=== PATIENT | male | born 1985 | race Caucasian/White ===

== ENCOUNTER 2024-08-13 16:16 | Outpatient (BNV) | payer OTHER, SELFPAY | END 2024-08-18 11:44 | PROVIDERS: Admitting Provider Student in an Organized Health Care Education/Training Program; Emergency Provider Internal Medicine; Visit Provider Internal Medicine | DX: Z13.6 Encounter for screening for cardiovascular disorders (principal) | CPT/HCPCS: 93010 ==

== ENCOUNTER 2024-08-13 16:16 | Outpatient (BNV) | payer OTHER, SELFPAY | END 2024-08-18 10:30 | PROVIDERS: Admitting Provider Student in an Organized Health Care Education/Training Program; Emergency Provider Internal Medicine; Visit Provider Radiology Diagnostic Radiology | DX: N20.0 Calculus of kidney (principal); K76.0 Fatty (change of) liver, not elsewhere classified; R16.2 Hepatomegaly with splenomegaly, not elsewhere classified | CPT/HCPCS: 76700 ==

== ENCOUNTER → 2024-08-13 16:16 | Outpatient (BNV) | payer OTHER, SELFPAY | PROVIDERS: Admitting Provider Student in an Organized Health Care Education/Training Program; Emergency Provider Internal Medicine; Visit Provider Registered Nurse | DX: F32.2 Major depressive disorder, single episode, severe without psychotic features (principal) | CPT/HCPCS: 99232 ==

== ENCOUNTER → 2024-08-13 16:16 | Outpatient (BNV) | payer OTHER, SELFPAY | PROVIDERS: Admitting Provider Student in an Organized Health Care Education/Training Program; Emergency Provider Internal Medicine; Visit Provider Student in an Organized Health Care Education/Training Program | DX: R74.01 Elevation of levels of liver transaminase levels (principal); E83.42 Hypomagnesemia; K76.82 Hepatic encephalopathy | CPT/HCPCS: 99231; 99232; 99233 ==

== ENCOUNTER 2024-08-18 14:00 | Inpatient (IN) | payer OTHER, SELFPAY ==
--- NOTE | ~2024-08-18 | XR_ITS ---
CLINICAL HISTORY: Fever, cough Chest Radiographs, 2 views Comparison: None Findings: No cardiomegaly. Normal mediastinal contours. No pneumothorax. No focal opacity. Peribronchial thickening. No pleural effusion. Normal upper abdomen. No fracture. Impression: Peribronchial thickening may indicate bronchitis. This document has been electronically signed by: Radha Gtz MD on 08/20/2024 18:50:26
[2024-08-18 15:28] VITALS: BP 132/78; PULSE 92; RESP 17; TEMP 37.1; O2SAT 96
[2024-08-18 15:30] VITALS: BMI 22.2
[2024-08-18] MEDS: Omeprazole 40 MG CAPSULE.DR PO (16:02)
[2024-08-18] MEDS: Buprenorphine/Naloxone 2/0.5mg TAB.SUBL 3 TAB SUBLINGUAL ×2 (16:02→20:53)
--- NOTE | 2024-08-18 17:07 | PC.ADMIT ---
Patient is a direct transfer to our unit from [place] [address] at 1420 on a CV for treatment of Unspecified Depressive Disorder. Patient was originally sent to our ED from [facility] after a report of altered mental status while in the facility. Patient is A&O to person, place and time but impaired insight into situation, states I'm not sure where I was before this but they sent me to the hospital because I was totally gone. I felt like I was hypnotized . Per crisis eval, pt is currently homeless, appearance is unkempt and affect is flat upon interactions with poor eye contact. Thought blocking noted occasionally during assessment, and patients ability to focus is impaired (noted to be nodding off towards the end of the admission assessment). Patient reports a substance use hx of both alcohol and opiates but states I've been in recovery since around last March , pt's tox screen positive for Buprenorphine. He denies active SI/HI/AVH but states thoughts of wanting to hurt himself is on and off . Patient has medical hx of a TBI, seizures and Chronic Liver disease. Reports sleep is okay, but melatonin helps and states his appetite is good. Patient denies any physical complaints, though intermittent use of his accessory muscles upon inhaling has been noted Yeah I feel like I'm snoring sometimes when I take a breath but it doesn't bother me at all . Patient states his goal upon discharge is to get into a senior care house so I can get back to working and driving again . He has been placed on 15 minute checks for safety.
--- OUTSIDE RECORDS SUMMARY | 2024-08-18 17:54 | XMS_ITS | Clinical Summary ---
Author Organization [facility] Address [address] [place] [address] Phone Care Team Providers Care Store Promoter Name Role Phone Automatically, Signed Unavailable [phone] Conditions or Problems No information available. Medications No information available. Medications Administered No information available. Allergies, Adverse Reactions, Alerts No information available. Results Date Name Value Unit Range Flag Description Lab Report: URINE DRUG OF AB USE SCREEN OPIATE URINE NONE DETECTED op iate screen, urine BENZODIAZ UR NONE DETECTED Be nzodiazepines [Presence] in Urine BARBITURA UR NONE DETECTED ba rbiturates screen, urine AMPHETAMI UR NONE DETECTED Am phetamines [Presence] in Urine Plan of Care No information available. Procedures No information available. Vital Signs No information available. Immunizations No information available. Advance Directives No information available.
[2024-08-18 20:00] VITALS: BP 122/80; PULSE 80; RESP 16; TEMP 37.3; O2SAT 94
[2024-08-18] MEDS: clonazePAM 1 MG TABLET PO (20:53)
[2024-08-18] MEDS: hydrOXYzine HCL 25 MG TABLET PO (20:53)
[2024-08-18] MEDS: Nicotine Polacrilex 2 MG GUM 4 MG BUCCAL (20:53)
[2024-08-18] MEDS: levETIRAcetam 1,000 MG TABLET 1000 MG PO (20:54)
[2024-08-19] MEDS: clonazePAM 1 MG TABLET PO ×2 (03:51→12:23)
[2024-08-19] MEDS: hydrOXYzine HCL 25 MG TABLET PO ×3 (03:51→20:41)
[2024-08-19] MEDS: Levothyroxine Sodium 50 MCG TABLET PO (06:05)
[2024-08-19] MEDS: Omeprazole 40 MG CAPSULE.DR PO ×2 (06:33→16:54)
[2024-08-19 07:25] VITALS: BP 118/75; PULSE 93; RESP 14; TEMP 36.7; O2SAT 95
[2024-08-19] MEDS: Buprenorphine/Naloxone 2/0.5mg TAB.SUBL 3 TAB SUBLINGUAL ×3 (08:35→20:41)
[2024-08-19] MEDS: Escitalopram Oxalate 20 MG TABLET PO (08:35)
[2024-08-19] MEDS: levETIRAcetam 1,000 MG TABLET 1000 MG PO ×2 (08:35→20:41)
[2024-08-19] MEDS: Thiamine HCL 100 MG TABLET PO (08:35)
[2024-08-19] MEDS: Folic Acid 1 MG TABLET PO (08:35)
[2024-08-19 08:48] LABS: Estimated Average Glucose 91 mg/dL; Hemoglobin A1C 100.9708 umol/L; Hemoglobin A1c % 4.8 % (<6.0); Total Hemoglobin (HGBA1C) 3448.6258 umol/L
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
[2024-08-19 08:53] LABS: Cholesterol 99 mg/dL (<200); HDL Cholesterol 25 mg/dL (>40); LDL Cholesterol Calculated 53 mg/dL (<100); Triglycerides 105 mg/dL (<150)
[2024-08-19 09:09] LABS: Free T4 (Free Thyroxine) 0.89 ng/dL (0.71-1.85); Thyroid Stimulating Hormone 4.65 uIU/mL (0.32-4.0)
[2024-08-19 09:19] LABS: Vitamin B12 1752 pg/mL (200-900)
[2024-08-19 10:09] LABS: Folate 16.3 ng/mL (> or = 4.0)
--- NOTE | 2024-08-19 10:47 | PC.NURSE ---
Patient's labs this morning showed Vitamin B12 elevated (1,752). Provider Simon Flowers notified via tiger text and patient's scheduled Cyanocobalamin (Vitamin B-12) was held.
[2024-08-19 20:00] VITALS: BP 106/60; PULSE 80; RESP 16; TEMP 36.8; O2SAT 96
[2024-08-19] MEDS: QUEtiapine Fumarate 50 MG TABLET PO (20:41)
[2024-08-20] MEDS: LORazepam 1 MG TABLET PO ×3 (01:24→20:29)
[2024-08-20] MEDS: Ondansetron ODT 8 MG TAB.RAPDIS TRANSLINGU (03:40)
[2024-08-20] MEDS: Levothyroxine Sodium 50 MCG TABLET PO (06:00)
[2024-08-20] MEDS: Omeprazole 40 MG CAPSULE.DR PO ×2 (06:28→15:20)
[2024-08-20] MEDS: Acetaminophen 325 MG TABLET 650 MG PO ×2 (07:30→13:36)
[2024-08-20 07:45] VITALS: BP 122/72; PULSE 127; RESP 18; TEMP 38.4; O2SAT 94
--- NOTE | 2024-08-20 08:47 | HO.PSYCHPN ---
Subjective Subjective Date of Service: 08/20/24 Reason For Visit: depression Subjective Notes: Conditional Voluntary Interim History: laying in bed. pt reports he can't really explain how I'm feeling but I'm trying to remain hopeful ; he states feeling upset about his medication changes. denies SI/HI/VH/AH. per nursing, pt vomited x1 last night. Ordered Covid/Flu/RSV panel; awaiting results. Medication Compliance: Yes Side effects from medications: No Attending Groups: No Mental Status Exam Mental Status Exam Patient Appearance: Disheveled Patient Orientation: Person, Place and Situation Level of Consciousness: Awake Patient Behavior: Cooperative and Good Eye Contact Mood Description: Depressed Affect Description: Blunted Ability to Follow Directions: Good Speech Pattern: Soft-Spoken Hallucinations: None Thought Process: Goal Oriented Thought Content: positive for Goal Oriented Judgement: Fair Diagnostics Vital Signs (24Hr): Vital Signs - 24 hr 08/19/24 20:00 08/20/24 07:45 Temperature 98.3 F 101.1 F H Pulse Rate 80 127 H Respiratory Rate 16 18 Blood Pressure 106/60 122/72 Pulse Oximetry 96 94 Oxygen Delivery Method Room Air Room Air BMI result Body Mass Index 22.2 Labs Labs: Laboratory Results - last 48 hr 08/19/24 07:59 Estimat Average Glucose 91 Hemoglobin A1c % 4.8 Triglycerides 105 Cholesterol 99 LDL Cholesterol, Calc 53 HDL Cholesterol 25 L Vitamin B12 1752 H Folate 16.3 TSH 4.65 H Free T4 0.89 Medications Medications Current Medications Acetaminophen (Acetaminophen 325 Mg Tablet) 650 mg PO Q6H PRN PRN Reason: Headache/Pain Mild Scale (1-3) Last Admin: 08/20/24 07:30 Dose: 650 mg Al Hydroxide/Mg Hydroxide (Magnesium Hydrox/Alum Hydrox 30 Ml Oral.Susp) 30 ml PO Q6H PRN PRN Reason: Heartburn/Nausea Buprenorphine/Naloxone (Buprenorphine/Naloxone 2/0.5mg Tab.Subl) 3 tab SUBLINGUAL TID [facility] Last Admin: 08/19/24 20:41 Dose: 3 tab Cyanocobalamin (Cyanocobalamin (Vitamin B-12) 1,000 Mcg Tablet) 1,000 mcg PO DAILY [facility] Last Admin: 08/19/24 10:47 Dose: Not Given Escitalopram Oxalate (Escitalopram Oxalate 20 Mg Tablet) 20 mg PO DAILY [facility] Last Admin: 08/19/24 08:35 Dose: 20 mg Folic Acid (Folic Acid 1 Mg Tablet) 1 mg PO DAILY [facility] Last Admin: 08/19/24 08:35 Dose: 1 mg Hydroxyzine HCl (Hydroxyzine Hcl 25 Mg Tablet) 25 mg PO Q6H PRN PRN Reason: Anxiety Last Admin: 08/19/24 20:41 Dose: 25 mg Lactulose (Lactulose 20 Gm/30 Ml Solution) 20 gm PO QID PRN PRN Reason: ammonia buildup Levetiracetam (Levetiracetam 1,000 Mg Tablet) 1,000 mg PO BID [facility] Last Admin: 08/19/24 20:41 Dose: 1,000 mg Levothyroxine Sodium (Levothyroxine Sodium 50 Mcg Tablet) 50 mcg PO DAILY@0600 [facility] Last Admin: 08/20/24 06:00 Dose: 50 mcg Lorazepam (Lorazepam 1 Mg Tablet) 1 mg PO TID PRN PRN Reason: severe anxiety Last Admin: 08/20/24 01:24 Dose: 1 mg Magnesium Hydroxide (Milk Of Magnesia 30 Ml Oral.Susp) 30 ml PO DAILY PRN PRN Reason: Constipation Nicotine Polacrilex (Nicotine Polacrilex 2 Mg Gum) 4 mg BUCCAL Q2H PRN PRN Reason: Nicotine Cravings Last Admin: 08/18/24 20:53 Dose: 4 mg Omeprazole (Omeprazole 40 Mg Capsule.Dr) 40 mg PO BID@0630,1630 [facility] Last Admin: 08/20/24 06:28 Dose: 40 mg Ondansetron HCl (Ondansetron Odt 8 Mg Tab.Rapdis) 8 mg TRANSLINGU Q12H PRN PRN Reason: Nausea and Vomiting Last Admin: 08/20/24 03:40 Dose: 8 mg Quetiapine Fumarate (Quetiapine Fumarate 50 Mg Tablet) 50 mg PO BEDTIME [facility] Last Admin: 08/19/24 20:41 Dose: 50 mg Senna (Sennosides 8.6 Mg Tablet) 17.2 mg PO DAILY PRN PRN Reason: Constipation Thiamine HCl (Thiamine Hcl 100 Mg Tablet) 100 mg PO DAILY [facility] Last Admin: 08/19/24 08:35 Dose: 100 mg Trazodone HCl (Trazodone Hcl 50 Mg Tablet) 50 mg PO BEDTIME MRX1 PRN PRN Reason: Insomnia Triamcinolone Acetonide (Triamcinolone Acet 0.1 % Cream 15 Gm Tube) 1 appl TOPICAL BID PRN; Protocol PRN Reason: eczema Allergies Allergies Allergy/AdvReac Type Severity Reaction Status Date / Time chlorpromazine Allergy Unknown Verified 08/13/24 12:47 [From Thorazine] fluoxetine [From Prozac] Allergy Unknown Verified 08/13/24 12:47 haloperidol [From Haldol] Allergy Unknown Verified 08/13/24 12:47 Assessment & Plan Assessment & Plan (1) Depression: Status: Acute Code(s): F32.A - Depression, unspecified (2) Acute hepatic encephalopathy: Status: Acute Code(s): K76.82 - Hepatic encephalopathy (3) Opioid use disorder: Status: Acute Code(s): F11.90 - Opioid use, unspecified, uncomplicated (4) Nicotine dependence: Status: Acute Code(s): F17.200 - Nicotine dependence, unspecified, uncomplicated Plan cut suboxone from 8 TID to 6 TID due to altered level of consciousness. decrease klonopin dosing and convert to ativan; ativan 1 TID PRN for now. hepatic insufficiency. asking for seroqeul 50 QHS for sleep. will add tonight. GI recs noted - liver U/S completed. per ID - no Tx to be started in hospital for Hep C, refer to ID on discharge. F/U with gastro. 08/20: continue current tx plan. Patient educated on: medication risk/benefits and therapeutic strategies Reason for continued inpatient stay Substantial Risk for: med/psych decompensation Time Spent With Patient Time: Total time managing care of this patient today _20___ minutes.
[2024-08-20] MEDS: levETIRAcetam 1,000 MG TABLET 1000 MG PO ×2 (09:27→20:29)
[2024-08-20] MEDS: Escitalopram Oxalate 20 MG TABLET PO (09:28)
[2024-08-20] MEDS: Buprenorphine/Naloxone 2/0.5mg TAB.SUBL 3 TAB SUBLINGUAL ×3 (09:29→20:29)
[2024-08-20 09:32] VITALS: TEMP 38.2
[2024-08-20] MEDS: Cyanocobalamin (Vitamin B-12) 1,000 MCG TABLET 1000 MCG PO (10:14)
[2024-08-20] MEDS: Folic Acid 1 MG TABLET PO (10:14)
[2024-08-20] MEDS: Thiamine HCL 100 MG TABLET PO (10:14)
[2024-08-20 10:17] VITALS: PULSE 112; RESP 16; TEMP 38.3
[2024-08-20 15:20] LABS: Hematocrit 36.6 % (42.0-52.0); Hemoglobin 12.3 g/dl (14.0-18.0); Imm Gran Abs Auto 0.01 X10*3/uL (0.00-0.03); Imm Gran Pct Auto 0.3 % (0.0-0.4); MANUAL DIFF FLAG SCAN; Mean Corpuscular HGB Conc 33.6 g/dl (31.0-36.0); Mean Corpuscular Hemoglobin 31.5 pg (27.0-33.0); PLT CLUMP 1; SCAN SMEAR FLAG 1
[2024-08-20 15:22] LABS: Basophils Percent Auto 0.6 % (0-2); Eosinophils Percent Auto 0.3 % (0-4); Lymphocytes Absolute Auto 0.3 X10*3/uL (1.2-4.9); Lymphocytes Percent Auto 10.4 % (20-40); Mean Corpuscular Volume 93.6 fL (80.0-98.0); Mean Platelet Volume 10.5 fL (9.4-12.4); Monocytes Absolute Auto 0.2 X10*3/uL (0.1-1.2); Neutrophils Absolute Auto 2.7 x10*3/uL (2.0-8.3); Neutrophils Percent Auto 81.4 % (45-73); Red Blood Count 3.91 X10*6/uL (4.60-5.80); Red Cell Distribution Width 18.2 % (11.0-16.0)
[2024-08-20 15:24] LABS: Platelet Count 50 X10*3/uL (160-400); White Blood Count 3.3 X10*3/uL (4.8-10.8)
[2024-08-20 15:28] LABS: Ammonia 116 umol/L (13-55)
[2024-08-20 15:31] VITALS: TEMP 38.4
[2024-08-20 15:38] LABS: Alanine Aminotransferase 89 U/L (0-40); Albumin Level 2.5 g/dL (3.5-5.0); Aspartate Amino Transferase 117 U/L (5-37); Bilirubin Direct 0.7 mg/dL (0.0-0.5); Bilirubin Total 1.4 mg/dL (0.0-1.0); Total Protein 6.8 g/dL (6.5-8.0)
[2024-08-20 15:48] LABS: Alkaline Phosphatase 87 U/L (39-117)
[2024-08-20 17:07] LABS: Influenza A PCR NEGATIVE (Negative); Influenza B PCR NEGATIVE (Negative); Resp Syncy Virus RNA Qual PCR NEGATIVE (Negative); SARS COV2 PCR INHOUSE NEGATIVE (Negative)
[2024-08-20] MEDS: Lactulose 20 GM/30 ML SOLUTION PO ×2 (17:20→20:30)
--- NOTE | 2024-08-20 18:04 | PM.EVENT ---
Event Note Date of Service: 08/20/24 Event Note: Pt is a 38-year-old admitted to [facility] with hospitalist consult placed for evaluation of fever. Pt recently admitted to the hospital floor for encephalopathy in the setting of hyperammonemia and then transferred to the psych floor. Pt spiked a fever as high as 101.1 today while on the unit. Complains of sore throat and dry cough the past few days. Also has mild abdominal pain with some nausea vomiting. Denies polyuria or dysuria. No SOB or difficulty breathing. Earlier today tested negative for flu, COVID, RSV. Will check for strep A and get CXR and UA. Time Spent With Patient Time: Total time managing care of this patient today ____ minutes.
[2024-08-20 18:11] LABS: SLIDE REVIEW VERIFIED
[2024-08-20 18:58] LABS: IDNOW Serial# 58CA691E; Strep A Nucleic Acid Negative (Negative)
[2024-08-20 20:00] VITALS: BP 102/60; PULSE 106; RESP 16; TEMP 38.3; O2SAT 97
[2024-08-20] MEDS: QUEtiapine Fumarate 50 MG TABLET PO (20:29)
[2024-08-20 21:11] LABS: Appearance Urine Clear; Color Urine Dark Yellow; Glucose Urine UA Negative (Negative); Leukocyte Esterase Urine Trace (Negative); Nitrite Urine Negative (Negative); Specific Gravity - Urine >= 1.030 (1.005-1.025); UMIC TRIGGER UACC YES; Urine Blood Negative (Negative); Urine Ketones Negative (Negative); Urine Protein Negative (Neg-Trace)
[2024-08-20 21:13] LABS: Bacteria Urine None Seen (None Seen); Hyaline Casts Urine 0-2 /LPF (0-2); RBC Urine 0-2 /HPF (0-2); Squamous Epithelial Cell Urine 0-2 /HPF (0-2); WBC Urine 0-5 /HPF (0-5)
[2024-08-21] MEDS: hydrOXYzine HCL 25 MG TABLET PO ×2 (00:24→06:52)
[2024-08-21] MEDS: traZODone HCL 50 MG TABLET PO ×3 (00:24→20:55)
[2024-08-21 01:33] VITALS: TEMP 36.9
[2024-08-21] MEDS: Levothyroxine Sodium 50 MCG TABLET PO (06:00)
[2024-08-21] MEDS: Omeprazole 40 MG CAPSULE.DR PO ×2 (06:49→15:17)
[2024-08-21] MEDS: LORazepam 1 MG TABLET PO ×2 (06:52→15:17)
[2024-08-21 07:55] VITALS: BP 102/59; PULSE 96; RESP 16; TEMP 37.7; O2SAT 97
[2024-08-21] MEDS: Cyanocobalamin (Vitamin B-12) 1,000 MCG TABLET 1000 MCG PO (09:02)
[2024-08-21] MEDS: levETIRAcetam 1,000 MG TABLET 1000 MG PO ×2 (09:02→20:55)
[2024-08-21] MEDS: Folic Acid 1 MG TABLET PO (09:02)
[2024-08-21] MEDS: Buprenorphine/Naloxone 2/0.5mg TAB.SUBL 3 TAB SUBLINGUAL (09:03)
[2024-08-21] MEDS: Thiamine HCL 100 MG TABLET PO (09:03)
[2024-08-21] MEDS: Escitalopram Oxalate 20 MG TABLET PO (09:03)
[2024-08-21] MEDS: Lactulose 20 GM/30 ML SOLUTION PO ×3 (09:03→20:54)
--- NOTE | 2024-08-21 09:05 | P.PNPSI_ITS ---
Subjective Subjective Date of Service: 08/21/24 Reason For Visit: depression Subjective Notes: Conditional Voluntary Interim History: Showered. Pt reports feeling anxious and depressed ; denies SI/HI/VH/AH. Per nursing, crushed orange pills were found near patient's bed with rolled up paper (please see her note). T/W attempted to speak to patient regarding this, however pt declined to speak with T/W. He was informed Suboxone pills would be switched to films and would have to be monitored by staff after medication administration; Pt acknowledged T/W. Chest x-ray results showed peribronchial thickening may indicate bronchitis; please see hospitalist note. Medication Compliance: Yes Side effects from medications: No Attending Groups: No Mental Status Exam Mental Status Exam Patient Appearance: Disheveled Patient Orientation: Person, Place and Situation Level of Consciousness: Drowsy Patient Behavior: Guarded Mood Description: Depressed Affect Description: Blunted Ability to Follow Directions: Good Speech Pattern: Soft-Spoken Hallucinations: None Delusions: Not Present Thought Process: Intact Thought Content: positive for Intact Judgement: Poor Diagnostics Vital Signs (24Hr): Vital Signs - 24 hr 08/20/24 09:32 08/20/24 10:17 08/20/24 15:31 Temperature 100.7 F H 100.9 F H 101.1 F H Pulse Rate 112 H Respiratory Rate 16 Blood Pressure Pulse Oximetry Oxygen Delivery Method 08/20/24 20:00 08/21/24 01:33 08/21/24 07:55 Temperature 100.9 F H 98.4 F 100 F Pulse Rate 106 H 96 Respiratory Rate 16 16 Blood Pressure 102/60 102/59 L Pulse Oximetry 97 97 Oxygen Delivery Method Room Air Room Air BMI result Body Mass Index 22.2 Labs 08/20/24 15:07 Labs: Laboratory Results - last 48 hr 08/19/24 08/20/24 08/20/24 07:59 14:30 15:07 WBC 3.3 L RBC 3.91 L Hgb 12.3 L Hct 36.6 L MCV 93.6 MCH 31.5 MCHC 33.6 RDW 18.2 H Plt Count 50 L MPV 10.5 Immature Gran % (Auto) 0.3 Neut % (Auto) 81.4 H Lymph % (Auto) 10.4 L Coke % (Auto) 7.0 Eos % (Auto) 0.3 Baso % (Auto) 0.6 Lymph # (Auto) 0.3 L [place] # (Auto) 0.2 Eos # (Auto) 0.0 Baso # (Auto) 0.0 Abs Immat Gran (auto) 0.01 Absolute Neuts (auto) 2.7 Absolute Nucleated RBC 0.000 Nucleated RBC % (auto) 0.0 Smear Tech's Comments VERIFIED Total Bilirubin 1.4 H Direct Bilirubin 0.7 H AST 117 H ALT 89 H Alkaline Phosphatase 87 Ammonia 116 H Total Protein 6.8 Albumin 2.5 L Vitamin B12 1752 H Folate 16.3 TSH 4.65 H Free T4 0.89 Urine Color Urine Appearance Urine pH Ur Specific [place] Urine Protein Urine Glucose (UA) Urine Ketones Urine Blood Urine Nitrite Ur Leukocyte Esterase Urine RBC Urine WBC Ur Squamous Epith Cells Urine Bacteria Hyaline Casts Influenza Type A (PCR) NEGATIVE Influenza Type B (PCR) NEGATIVE RSV RNA Qual (PCR) NEGATIVE SARS-CoV-2 RNA (RT-PCR) NEGATIVE S. pyogenes GrpA JERRY 08/20/24 08/20/24 18:35 20:45 WBC RBC Hgb Hct MCV MCH MCHC RDW Plt Count MPV Immature Gran % (Auto) Neut % (Auto) Lymph % (Auto) [place] % (Auto) Eos % (Auto) Baso % (Auto) Lymph # (Auto) [place] # (Auto) Eos # (Auto) Baso # (Auto) Abs Immat Gran (auto) Absolute Neuts (auto) Absolute Nucleated RBC Nucleated RBC % (auto) Smear Tech's Comments Total Bilirubin Direct Bilirubin AST ALT Alkaline Phosphatase Ammonia Total Protein Albumin Vitamin B12 Folate TSH Free T4 Urine Color Dark Yellow Urine Appearance Clear Urine pH 6.0 Ur Specific [place] >= 1.030 H Urine Protein Negative Urine Glucose (UA) Negative Urine Ketones Negative Urine Blood Negative Urine Nitrite Negative Ur Leukocyte Esterase Trace H Urine RBC 0-2 Urine WBC 0-5 Ur Squamous Epith Cells 0-2 Urine Bacteria None Seen Hyaline Casts 0-2 Influenza Type A (PCR) Influenza Type B (PCR) RSV RNA Qual (PCR) SARS-CoV-2 RNA (RT-PCR) S. pyogenes GrpA JERRY Negative Medications Medications Current Medications Al Hydroxide/Mg Hydroxide (Magnesium Hydrox/Alum Hydrox 30 Ml Oral.Susp) 30 ml PO Q6H PRN PRN Reason: Heartburn/Nausea Buprenorphine/Naloxone (Buprenorphine/Naloxone 2/0.5mg Tab.Subl) 3 tab SUBLINGUAL TID [facility] Last Admin: 08/20/24 20:29 Dose: 3 tab Cyanocobalamin (Cyanocobalamin (Vitamin B-12) 1,000 Mcg Tablet) 1,000 mcg PO DAILY [facility] Last Admin: 08/20/24 10:14 Dose: 1,000 mcg Escitalopram Oxalate (Escitalopram Oxalate 20 Mg Tablet) 20 mg PO DAILY [facility] Last Admin: 08/20/24 09:28 Dose: 20 mg Folic Acid (Folic Acid 1 Mg Tablet) 1 mg PO DAILY [facility] Last Admin: 08/20/24 10:14 Dose: 1 mg Hydroxyzine HCl (Hydroxyzine Hcl 25 Mg Tablet) 25 mg PO Q6H PRN PRN Reason: Anxiety Last Admin: 08/21/24 06:52 Dose: 25 mg Lactulose (Lactulose 20 Gm/30 Ml Solution) 20 gm PO TID [facility] Last Admin: 08/20/24 20:30 Dose: 20 gm Levetiracetam (Levetiracetam 1,000 Mg Tablet) 1,000 mg PO BID [facility] Last Admin: 08/20/24 20:29 Dose: 1,000 mg Levothyroxine Sodium (Levothyroxine Sodium 50 Mcg Tablet) 50 mcg PO DAILY@0600 [facility] Last Admin: 08/21/24 06:00 Dose: 50 mcg Lorazepam (Lorazepam 1 Mg Tablet) 1 mg PO TID PRN PRN Reason: severe anxiety Last Admin: 08/21/24 06:52 Dose: 1 mg Magnesium Hydroxide (Milk Of Magnesia 30 Ml Oral.Susp) 30 ml PO DAILY PRN PRN Reason: Constipation Nicotine Polacrilex (Nicotine Polacrilex 2 Mg Gum) 4 mg BUCCAL Q2H PRN PRN Reason: Nicotine Cravings Last Admin: 08/18/24 20:53 Dose: 4 mg Omeprazole (Omeprazole 40 Mg Capsule.Dr) 40 mg PO BID@0630,1630 [facility] Last Admin: 08/21/24 06:49 Dose: 40 mg Ondansetron HCl (Ondansetron Odt 8 Mg Tab.Rapdis) 8 mg TRANSLINGU Q12H PRN PRN Reason: Nausea and Vomiting Last Admin: 08/20/24 03:40 Dose: 8 mg Quetiapine Fumarate (Quetiapine Fumarate 50 Mg Tablet) 50 mg PO BEDTIME [facility] Last Admin: 08/20/24 20:29 Dose: 50 mg Senna (Sennosides 8.6 Mg Tablet) 17.2 mg PO DAILY PRN PRN Reason: Constipation Thiamine HCl (Thiamine Hcl 100 Mg Tablet) 100 mg PO DAILY [facility] Last Admin: 08/20/24 10:14 Dose: 100 mg Trazodone HCl (Trazodone Hcl 50 Mg Tablet) 50 mg PO BEDTIME MRX1 PRN PRN Reason: Insomnia Last Admin: 08/21/24 01:25 Dose: 50 mg Triamcinolone Acetonide (Triamcinolone Acet 0.1 % Cream 15 Gm Tube) 1 appl TOPICAL BID PRN; Protocol PRN Reason: eczema Allergies Allergies Allergy/AdvReac Type Severity Reaction Status Date / Time chlorpromazine Allergy Unknown Verified 08/13/24 12:47 [From Thorazine] fluoxetine [From Prozac] Allergy Unknown Verified 08/13/24 12:47 haloperidol [From Haldol] Allergy Unknown Verified 08/13/24 12:47 Assessment & Plan Assessment & Plan (1) Depression: Status: Acute Code(s): F32.A - Depression, unspecified (2) Acute hepatic encephalopathy: Status: Acute Code(s): K76.82 - Hepatic encephalopathy (3) Opioid use disorder: Status: Acute Code(s): F11.90 - Opioid use, unspecified, uncomplicated (4) Nicotine dependence: Status: Acute Code(s): F17.200 - Nicotine dependence, unspecified, uncomplicated Plan cut suboxone from 8 TID to 6 TID due to altered level of consciousness. decrease klonopin dosing and convert to ativan; ativan 1 TID PRN for now. hepatic insufficiency. asking for seroqeul 50 QHS for sleep. will add tonight. GI recs noted - liver U/S completed. per ID - no Tx to be started in hospital for Hep C, refer to ID on discharge. F/U with gastro. 08/20: continue current tx plan. 08/21: Per nursing, crushed orange pills were found near patient's bed with rolled up paper (please see her note). T/W attempted to speak to patient regarding this, however pt declined to speak with T/W. He was informed Suboxone pills would be switched to films and would have to be monitored by staff after medication administration; Pt acknowledged T/W. Chest x-ray results showed peribronchial thickening may indicate bronchitis; please see hospitalist note. Patient educated on: medication risk/benefits Reason for continued inpatient stay Substantial Risk for: med/psych decompensation Time Spent With Patient Time: Total time managing care of this patient today _20___ minutes.
[2024-08-21] MEDS: Nicotine Polacrilex 2 MG GUM 4 MG BUCCAL (11:12)
--- NOTE | 2024-08-21 11:58 | PC.NURSE ---
Yesterday and this am Nabil Avelar was encouraged by RN to shower. He was resistant but eventually agreed. While he was in shower RN was changing his linens and found 6 orange pills in various locations including bed side table, floor and an emesis basin. These appear to be suboxone 2mg. In addition a blue round pill (which resembles clonazepam but pt is not prescribed) was found on the floor. On the desk a unit journal with crushed orange dust, two rolled up pieces of paper with orange dust inside were found. The remainder of this area was searched by RN with no further finding. Items were removed from pt room. Provider Destini Vieira NP, Devyn Naik, Nicole Walton Cytology Supervisor and Dr Nugent were informed. Medications were wasted by Marylou King RN and Margoth Loaiza RN. When pt exited the shower RN showed him the items I found and he stated, I think a pill slid. When I attempted to discuss the unlikelihood that that would explain my findings pt walked away. Pt was informed by provider that suboxone would be switched to films and he would be on close obs following med administration.
[2024-08-21 13:00] VITALS: TEMP 37.2
[2024-08-21 14:42] LABS: IDNOW Serial# 08D9AD1C; Strep A Nucleic Acid Negative (Negative)
[2024-08-21] MEDS: Buprenorphine/Naloxone 2/0.5mg FILM 3 FILM SUBLINGUAL ×2 (15:18→20:54)
[2024-08-21 17:51] VITALS: TEMP 37.1
[2024-08-21 20:00] VITALS: BP 112/74; PULSE 107; RESP 16; TEMP 38.1; O2SAT 97
[2024-08-21] MEDS: QUEtiapine Fumarate 50 MG TABLET PO (20:54)
[2024-08-21 21:06] VITALS: PULSE 100
[2024-08-22] MEDS: Levothyroxine Sodium 50 MCG TABLET PO (06:05)
[2024-08-22] MEDS: Omeprazole 40 MG CAPSULE.DR PO ×2 (06:44→16:25)
[2024-08-22 07:25] VITALS: BP 101/51; PULSE 95; RESP 14; TEMP 38.6; O2SAT 93
[2024-08-22 08:57] VITALS: BP 116/65; PULSE 92; O2SAT 95
[2024-08-22] MEDS: levETIRAcetam 1,000 MG TABLET 1000 MG PO ×2 (09:01→21:03)
[2024-08-22] MEDS: Folic Acid 1 MG TABLET PO (09:01)
[2024-08-22] MEDS: Escitalopram Oxalate 20 MG TABLET PO (09:01)
[2024-08-22] MEDS: Thiamine HCL 100 MG TABLET PO (09:01)
[2024-08-22] MEDS: Lactulose 20 GM/30 ML SOLUTION PO ×3 (09:02→21:04)
[2024-08-22] MEDS: Cyanocobalamin (Vitamin B-12) 1,000 MCG TABLET 1000 MCG PO (09:09)
[2024-08-22] MEDS: Buprenorphine/Naloxone 2/0.5mg FILM 3 FILM SUBLINGUAL ×2 (09:15→15:42)
--- NOTE | 2024-08-22 16:01 | HO.PSYCHPN ---
Subjective Subjective Date of Service: 08/22/24 Reason For Visit: depression Interim History: in bed, unclear if asleep or awake. easily rousable. c/o poor sleep overnight, c/o too much suboxone all at once (believes he got 24mg this morning). brushes off concern about pills found at his bedside this weekend, states he had been thinking about snorting them, but he hadn't actually done it. per staff, blunted. staff found 6 suboxone tabs and a klonopin by bedside, as well as rolled paper (presumably for snorting). no seizures. slept 8 hours. Mental Status Exam Mental Status Exam Narrative: disheveled, hospital ok, poorly groomed, long greasy hair. cooperative. general PMR. speech nml amount, decr rate, decr loudness, incr latency, decr prosody. thoughts linear and logical, no paranoia expressed. affect blunted, hypointense, non-labile. mood not assessed. no SI/HI/AVH expressed. Diagnostics Vital Signs (24Hr): Vital Signs - 24 hr 08/21/24 17:51 08/21/24 20:00 08/21/24 21:06 Temperature 98.8 F 100.5 F H Pulse Rate 107 H 100 Respiratory Rate 16 Blood Pressure 112/74 Pulse Oximetry 97 Oxygen Delivery Method Room Air 08/22/24 07:25 08/22/24 08:57 Temperature 101.5 F H Pulse Rate 95 92 Respiratory Rate 14 Blood Pressure 101/51 L 116/65 Pulse Oximetry 93 95 Oxygen Delivery Method Room Air Room Air BMI result Body Mass Index 22.2 Labs 08/20/24 15:07 Labs: Laboratory Results - last 48 hr 08/20/24 08/20/24 08/20/24 14:30 15:07 18:35 Smear Tech's Comments VERIFIED Urine Color Urine Appearance Urine pH Ur Specific [place] Urine Protein Urine Glucose (UA) Urine Ketones Urine Blood Urine Nitrite Ur Leukocyte Esterase Urine RBC Urine WBC Ur Squamous Epith Cells Urine Bacteria Hyaline Casts Influenza Type A (PCR) NEGATIVE Influenza Type B (PCR) NEGATIVE RSV RNA Qual (PCR) NEGATIVE SARS-CoV-2 RNA (RT-PCR) NEGATIVE S. pyogenes GrpA JERRY Negative 08/20/24 08/21/24 20:45 14:00 Smear Tech's Comments Urine Color Dark Yellow Urine Appearance Clear Urine pH 6.0 Ur Specific [place] >= 1.030 H Urine Protein Negative Urine Glucose (UA) Negative Urine Ketones Negative Urine Blood Negative Urine Nitrite Negative Ur Leukocyte Esterase Trace H Urine RBC 0-2 Urine WBC 0-5 Ur Squamous Epith Cells 0-2 Urine Bacteria None Seen Hyaline Casts 0-2 Influenza Type A (PCR) Influenza Type B (PCR) RSV RNA Qual (PCR) SARS-CoV-2 RNA (RT-PCR) S. pyogenes GrpA JERRY Negative Medications Medications Current Medications Al Hydroxide/Mg Hydroxide (Magnesium Hydrox/Alum Hydrox 30 Ml Oral.Susp) 30 ml PO Q6H PRN PRN Reason: Heartburn/Nausea Albuterol Sulfate (Albuterol Sulfate 90 Mcg 8 Gm Inhaler) 2 puff INHALE RQ4H PRN PRN Reason: Shortness of Breath/Wheezing Buprenorphine/Naloxone (Buprenorphine/Naloxone 2/0.5mg Film) 3 film SUBLINGUAL TID [facility] Last Admin: 08/22/24 15:42 Dose: 3 film Cyanocobalamin (Cyanocobalamin (Vitamin B-12) 1,000 Mcg Tablet) 1,000 mcg PO DAILY [facility] Last Admin: 08/22/24 09:09 Dose: 1,000 mcg Escitalopram Oxalate (Escitalopram Oxalate 20 Mg Tablet) 20 mg PO DAILY [facility] Last Admin: 08/22/24 09:01 Dose: 20 mg Folic Acid (Folic Acid 1 Mg Tablet) 1 mg PO DAILY [facility] Last Admin: 08/22/24 09:01 Dose: 1 mg Guaifenesin/Dextromethorphan (Guaifenesin Dm 200/20/10 Ml 10 Ml Syrup) 10 ml PO Q4H PRN PRN Reason: Cough Hydroxyzine HCl (Hydroxyzine Hcl 25 Mg Tablet) 25 mg PO Q6H PRN PRN Reason: Anxiety Last Admin: 08/21/24 06:52 Dose: 25 mg Lactulose (Lactulose 20 Gm/30 Ml Solution) 20 gm PO TID [facility] Last Admin: 08/22/24 15:42 Dose: 20 gm Levetiracetam (Levetiracetam 1,000 Mg Tablet) 1,000 mg PO BID [facility] Last Admin: 08/22/24 09:01 Dose: 1,000 mg Levothyroxine Sodium (Levothyroxine Sodium 50 Mcg Tablet) 50 mcg PO DAILY@0600 [facility] Last Admin: 08/22/24 06:05 Dose: 50 mcg Magnesium Hydroxide (Milk Of Magnesia 30 Ml Oral.Susp) 30 ml PO DAILY PRN PRN Reason: Constipation Nicotine Polacrilex (Nicotine Polacrilex 2 Mg Gum) 4 mg BUCCAL Q2H PRN PRN Reason: Nicotine Cravings Last Admin: 08/21/24 11:12 Dose: 4 mg Omeprazole (Omeprazole 40 Mg Capsule.Dr) 40 mg PO BID@0630,1630 [facility] Last Admin: 08/22/24 06:44 Dose: 40 mg Ondansetron HCl (Ondansetron Odt 8 Mg Tab.Rapdis) 8 mg TRANSLINGU Q12H PRN PRN Reason: Nausea and Vomiting Last Admin: 08/20/24 03:40 Dose: 8 mg Quetiapine Fumarate (Quetiapine Fumarate 50 Mg Tablet) 50 mg PO BEDTIME [facility] Last Admin: 08/21/24 20:54 Dose: 50 mg Senna (Sennosides 8.6 Mg Tablet) 17.2 mg PO DAILY PRN PRN Reason: Constipation Thiamine HCl (Thiamine Hcl 100 Mg Tablet) 100 mg PO DAILY [facility] Last Admin: 08/22/24 09:01 Dose: 100 mg Trazodone HCl (Trazodone Hcl 50 Mg Tablet) 50 mg PO BEDTIME MRX1 PRN PRN Reason: Insomnia Last Admin: 08/21/24 20:55 Dose: 50 mg Triamcinolone Acetonide (Triamcinolone Acet 0.1 % Cream 15 Gm Tube) 1 appl TOPICAL BID PRN; Protocol PRN Reason: eczema Allergies Allergies Allergy/AdvReac Type Severity Reaction Status Date / Time chlorpromazine Allergy Unknown Verified 08/13/24 12:47 [From Thorazine] fluoxetine [From Prozac] Allergy Unknown Verified 08/13/24 12:47 haloperidol [From Haldol] Allergy Unknown Verified 08/13/24 12:47 Assessment & Plan Assessment & Plan (1) Depression: Status: Acute Code(s): F32.A - Depression, unspecified (2) Acute hepatic encephalopathy: Status: Acute Code(s): K76.82 - Hepatic encephalopathy (3) Opioid use disorder: Status: Acute Code(s): F11.90 - Opioid use, unspecified, uncomplicated (4) Nicotine dependence: Status: Acute Code(s): F17.200 - Nicotine dependence, unspecified, uncomplicated Plan cut suboxone from 8 TID to 6 TID due to altered level of consciousness. decrease klonopin dosing and convert to ativan; ativan 1 TID PRN for now. hepatic insufficiency. asking for seroqeul 50 QHS for sleep. will add tonight. GI recs noted - liver U/S completed. per ID - no Tx to be started in hospital for Hep C, refer to ID on discharge. F/U with gastro. 08/20: continue current tx plan. 08/21: Per nursing, crushed orange pills were found near patient's bed with rolled up paper (please see her note). T/W attempted to speak to patient regarding this, however pt declined to speak with T/W. He was informed Suboxone pills would be switched to films and would have to be monitored by staff after medication administration; Pt acknowledged T/W. Chest x-ray results showed peribronchial thickening may indicate bronchitis; please see hospitalist note. 08/22: DC ativan. pt has not been getting much and should not be prescribed this medication in any case. will also pursue continuing to cut down on suboxone. Reason for continued inpatient stay Substantial Risk for: inability to function Time Spent With Patient Time: Total time managing care of this patient today __25__ minutes.
[2024-08-22 20:00] VITALS: BP 104/59; PULSE 83; RESP 16; TEMP 37.4; O2SAT 96
[2024-08-22 21:03] VITALS: TEMP 37.1
[2024-08-22] MEDS: Sennosides 8.6 MG TABLET 17.2 MG PO (21:03)
[2024-08-22] MEDS: QUEtiapine Fumarate 50 MG TABLET PO (21:04)
[2024-08-22] MEDS: Buprenorphine/Naloxone 2/0.5mg FILM 2 FILM SUBLINGUAL (21:04)
[2024-08-23] MEDS: hydrOXYzine HCL 25 MG TABLET PO ×2 (03:25→17:49)
[2024-08-23] MEDS: Levothyroxine Sodium 50 MCG TABLET PO (06:19)
[2024-08-23] MEDS: Omeprazole 40 MG CAPSULE.DR PO ×2 (06:57→16:19)
[2024-08-23 09:15] VITALS: BP 107/59; PULSE 83; RESP 20; TEMP 36.9; O2SAT 96
[2024-08-23] MEDS: Folic Acid 1 MG TABLET PO (09:18)
[2024-08-23] MEDS: levETIRAcetam 1,000 MG TABLET 1000 MG PO ×2 (09:18→21:13)
[2024-08-23] MEDS: Escitalopram Oxalate 20 MG TABLET PO (09:19)
[2024-08-23] MEDS: Lactulose 20 GM/30 ML SOLUTION PO ×3 (09:19→21:13)
[2024-08-23] MEDS: Buprenorphine/Naloxone 2/0.5mg FILM 2 FILM SUBLINGUAL ×3 (09:19→21:12)
[2024-08-23] MEDS: Cyanocobalamin (Vitamin B-12) 1,000 MCG TABLET 1000 MCG PO (09:19)
[2024-08-23] MEDS: Thiamine HCL 100 MG TABLET PO (09:19)
--- NOTE | 2024-08-23 10:43 | HO.PSYCHPN ---
Subjective Subjective Date of Service: 08/23/24 Reason For Visit: depression Subjective Notes: Conditional Voluntary Interim History: Laying in bed. keeping to self. not attending groups. Pt reports feeling upset d/t medication changes but he is trying to stay positive . per nursing, slept 8 hours. denies SI/HI/VH/AH. Encouraged to shower and attend groups. Medication Compliance: Yes Side effects from medications: No Attending Groups: No Mental Status Exam Mental Status Exam Patient Appearance: Disheveled Patient Orientation: Person, Place and Situation Level of Consciousness: Awake Patient Behavior: Guarded and Poor Eye Contact Mood Description: Depressed Affect Description: Blunted Ability to Follow Directions: Good Speech Pattern: Soft-Spoken and Delayed Hallucinations: None Delusions: Not Present Thought Process: Intact Thought Content: positive for Intact Diagnostics Vital Signs (24Hr): Vital Signs - 24 hr 08/22/24 20:00 08/22/24 21:03 08/23/24 09:15 Temperature 99.4 F 98.7 F 98.4 F Pulse Rate 83 83 Respiratory Rate 16 20 Blood Pressure 104/59 L 107/59 L Pulse Oximetry 96 96 Oxygen Delivery Method Room Air Room Air BMI result Body Mass Index 22.2 Labs 08/20/24 15:07 Labs: Laboratory Results - last 48 hr 08/21/24 14:00 S. pyogenes GrpA JERRY Negative Medications Medications Current Medications Al Hydroxide/Mg Hydroxide (Magnesium Hydrox/Alum Hydrox 30 Ml Oral.Susp) 30 ml PO Q6H PRN PRN Reason: Heartburn/Nausea Albuterol Sulfate (Albuterol Sulfate 90 Mcg 8 Gm Inhaler) 2 puff INHALE RQ4H PRN PRN Reason: Shortness of Breath/Wheezing Buprenorphine/Naloxone (Buprenorphine/Naloxone 2/0.5mg Film) 2 film SUBLINGUAL TID [facility] Last Admin: 08/23/24 09:19 Dose: 2 film Cyanocobalamin (Cyanocobalamin (Vitamin B-12) 1,000 Mcg Tablet) 1,000 mcg PO DAILY [facility] Last Admin: 08/23/24 09:19 Dose: 1,000 mcg Escitalopram Oxalate (Escitalopram Oxalate 20 Mg Tablet) 20 mg PO DAILY [facility] Last Admin: 08/23/24 09:19 Dose: 20 mg Folic Acid (Folic Acid 1 Mg Tablet) 1 mg PO DAILY [facility] Last Admin: 08/23/24 09:18 Dose: 1 mg Guaifenesin/Dextromethorphan (Guaifenesin Dm 200/20/10 Ml 10 Ml Syrup) 10 ml PO Q4H PRN PRN Reason: Cough Hydroxyzine HCl (Hydroxyzine Hcl 25 Mg Tablet) 25 mg PO Q6H PRN PRN Reason: Anxiety Last Admin: 08/23/24 03:25 Dose: 25 mg Lactulose (Lactulose 20 Gm/30 Ml Solution) 20 gm PO TID [facility] Last Admin: 08/23/24 09:19 Dose: 20 gm Levetiracetam (Levetiracetam 1,000 Mg Tablet) 1,000 mg PO BID [facility] Last Admin: 08/23/24 09:18 Dose: 1,000 mg Levothyroxine Sodium (Levothyroxine Sodium 50 Mcg Tablet) 50 mcg PO DAILY@0600 [facility] Last Admin: 08/23/24 06:19 Dose: 50 mcg Magnesium Hydroxide (Milk Of Magnesia 30 Ml Oral.Susp) 30 ml PO DAILY PRN PRN Reason: Constipation Nicotine Polacrilex (Nicotine Polacrilex 2 Mg Gum) 4 mg BUCCAL Q2H PRN PRN Reason: Nicotine Cravings Last Admin: 08/21/24 11:12 Dose: 4 mg Omeprazole (Omeprazole 40 Mg Capsule.Dr) 40 mg PO BID@0630,1630 [facility] Last Admin: 08/23/24 06:57 Dose: 40 mg Ondansetron HCl (Ondansetron Odt 8 Mg Tab.Rapdis) 8 mg TRANSLINGU Q12H PRN PRN Reason: Nausea and Vomiting Last Admin: 08/20/24 03:40 Dose: 8 mg Quetiapine Fumarate (Quetiapine Fumarate 50 Mg Tablet) 50 mg PO BEDTIME [facility] Last Admin: 08/22/24 21:04 Dose: 50 mg Senna (Sennosides 8.6 Mg Tablet) 17.2 mg PO DAILY PRN PRN Reason: Constipation Last Admin: 08/22/24 21:03 Dose: 17.2 mg Thiamine HCl (Thiamine Hcl 100 Mg Tablet) 100 mg PO DAILY [facility] Last Admin: 08/23/24 09:19 Dose: 100 mg Trazodone HCl (Trazodone Hcl 50 Mg Tablet) 50 mg PO BEDTIME MRX1 PRN PRN Reason: Insomnia Last Admin: 08/21/24 20:55 Dose: 50 mg Triamcinolone Acetonide (Triamcinolone Acet 0.1 % Cream 15 Gm Tube) 1 appl TOPICAL BID PRN; Protocol PRN Reason: eczema Allergies Allergies Allergy/AdvReac Type Severity Reaction Status Date / Time chlorpromazine Allergy Unknown Verified 08/13/24 12:47 [From Thorazine] fluoxetine [From Prozac] Allergy Unknown Verified 08/13/24 12:47 haloperidol [From Haldol] Allergy Unknown Verified 08/13/24 12:47 Assessment & Plan Assessment & Plan (1) Depression: Status: Acute Code(s): F32.A - Depression, unspecified (2) Acute hepatic encephalopathy: Status: Acute Code(s): K76.82 - Hepatic encephalopathy (3) Opioid use disorder: Status: Acute Code(s): F11.90 - Opioid use, unspecified, uncomplicated (4) Nicotine dependence: Status: Acute Code(s): F17.200 - Nicotine dependence, unspecified, uncomplicated Plan cut suboxone from 8 TID to 6 TID due to altered level of consciousness. decrease klonopin dosing and convert to ativan; ativan 1 TID PRN for now. hepatic insufficiency. asking for seroqeul 50 QHS for sleep. will add tonight. GI recs noted - liver U/S completed. per ID - no Tx to be started in hospital for Hep C, refer to ID on discharge. F/U with gastro. 08/20: continue current tx plan. 08/21: Per nursing, crushed orange pills were found near patient's bed with rolled up paper (please see her note). T/W attempted to speak to patient regarding this, however pt declined to speak with T/W. He was informed Suboxone pills would be switched to films and would have to be monitored by staff after medication administration; Pt acknowledged T/W. Chest x-ray results showed peribronchial thickening may indicate bronchitis; please see hospitalist note. 08/22: DC ativan. pt has not been getting much and should not be prescribed this medication in any case. will also pursue continuing to cut down on suboxone. 08/23: continue tx plan Patient educated on: medication risk/benefits and therapeutic strategies Reason for continued inpatient stay Substantial Risk for: med/psych decompensation Time Spent With Patient Time: Total time managing care of this patient today _20___ minutes.
[2024-08-23 15:00] LABS: Influenza A PCR NEGATIVE (Negative); Influenza B PCR NEGATIVE (Negative); Resp Syncy Virus RNA Qual PCR NEGATIVE (Negative); SARS COV2 PCR INHOUSE NEGATIVE (Negative)
[2024-08-23] MEDS: Sennosides 8.6 MG TABLET 17.2 MG PO (16:21)
[2024-08-23 20:00] VITALS: BP 124/67; PULSE 77; TEMP 36.9; O2SAT 97
[2024-08-23] MEDS: QUEtiapine Fumarate 50 MG TABLET PO (21:13)
[2024-08-24] MEDS: Levothyroxine Sodium 50 MCG TABLET PO (06:26)
[2024-08-24] MEDS: Omeprazole 40 MG CAPSULE.DR PO ×2 (06:26→15:38)
[2024-08-24 07:57] VITALS: BP 102/53; PULSE 75; RESP 14; TEMP 36.9; O2SAT 95
[2024-08-24] MEDS: Buprenorphine/Naloxone 2/0.5mg FILM 2 FILM SUBLINGUAL (08:10)
[2024-08-24] MEDS: levETIRAcetam 1,000 MG TABLET 1000 MG PO ×2 (08:10→20:30)
[2024-08-24] MEDS: Lactulose 20 GM/30 ML SOLUTION PO ×3 (08:10→20:29)
[2024-08-24] MEDS: Escitalopram Oxalate 20 MG TABLET PO (08:10)
[2024-08-24] MEDS: Cyanocobalamin (Vitamin B-12) 1,000 MCG TABLET 1000 MCG PO (08:10)
[2024-08-24] MEDS: Folic Acid 1 MG TABLET PO (08:10)
[2024-08-24] MEDS: Thiamine HCL 100 MG TABLET PO (08:10)
[2024-08-24] MEDS: Magnesium Hydrox/Alum Hydrox 30 ML ORAL.SUSP PO (08:33)
[2024-08-24] MEDS: Nicotine Polacrilex 2 MG GUM 4 MG BUCCAL ×2 (12:27→20:44)
[2024-08-24] MEDS: hydrOXYzine HCL 25 MG TABLET PO ×2 (12:27→20:30)
[2024-08-24] MEDS: Buprenorphine/Naloxone 2/0.5mg FILM 3 FILM SUBLINGUAL ×2 (15:35→20:29)
--- NOTE | 2024-08-24 16:36 | P.PNPSI_ITS ---
Subjective Subjective Date of Service: 08/24/24 Reason For Visit: depression Interim History: in bed, c/o drop in klonopin and gabapentin. c/o general malaise. informed he is more awake now and MD will increase his suboxone back to 6 mg TID grom 4 mg TID. c/o generalized pain later in the afternoon, gabapentin 300 TID restarted. informed of plan to discharge tomorrow, about which he appears hesitant. c/o anxiety and insomnia. stressed about nothing in particular. per staff, 3-day up thursday. taking meds. dep 4 anx 7. slept all NOC. per staff, rescinded 3- day notice. Mental Status Exam Mental Status Exam Narrative: disheveled, hospital [facility], adequately groomed. cooperative. general PMR. speech incr amount, decr rate, decr loudness, decr latency, decr prosody. thoughts linear and logical in answering questions, spontaneously wandering, no paranoia expressed. affect blunted, hypointense, non-labile. mood anxious. no SI. no HI/AVH expressed. Diagnostics Vital Signs (24Hr): Vital Signs - 24 hr 08/23/24 20:00 08/24/24 07:57 Temperature 98.5 F 98.5 F Pulse Rate 77 75 Respiratory Rate 14 Blood Pressure 124/67 102/53 L Pulse Oximetry 97 95 Oxygen Delivery Method Room Air Room Air BMI result Body Mass Index 22.2 Labs 08/20/24 15:07 Labs: Laboratory Results - last 48 hr 08/23/24 13:56 Influenza Type A (PCR) NEGATIVE Influenza Type B (PCR) NEGATIVE RSV RNA Qual (PCR) NEGATIVE SARS-CoV-2 RNA (RT-PCR) NEGATIVE Medications Medications Current Medications Al Hydroxide/Mg Hydroxide (Magnesium Hydrox/Alum Hydrox 30 Ml Oral.Susp) 30 ml PO Q6H PRN PRN Reason: Heartburn/Nausea Last Admin: 08/24/24 08:33 Dose: 30 ml Albuterol Sulfate (Albuterol Sulfate 90 Mcg 8 Gm Inhaler) 2 puff INHALE RQ4H PRN PRN Reason: Shortness of Breath/Wheezing Buprenorphine/Naloxone (Buprenorphine/Naloxone 2/0.5mg Film) 3 film SUBLINGUAL TID DORIAN Last Admin: 08/24/24 15:35 Dose: 3 film Cyanocobalamin (Cyanocobalamin (Vitamin B-12) 1,000 Mcg Tablet) 1,000 mcg PO DAILY [facility] Last Admin: 08/24/24 08:10 Dose: 1,000 mcg Escitalopram Oxalate (Escitalopram Oxalate 20 Mg Tablet) 20 mg PO DAILY [facility] Last Admin: 08/24/24 08:10 Dose: 20 mg Folic Acid (Folic Acid 1 Mg Tablet) 1 mg PO DAILY [facility] Last Admin: 08/24/24 08:10 Dose: 1 mg Gabapentin (Gabapentin 300 Mg Capsule) 300 mg PO TID [facility] Guaifenesin/Dextromethorphan (Guaifenesin Dm 200/20/10 Ml 10 Ml Syrup) 10 ml PO Q4H PRN PRN Reason: Cough Hydroxyzine HCl (Hydroxyzine Hcl 25 Mg Tablet) 25 mg PO Q6H PRN PRN Reason: Anxiety Last Admin: 08/24/24 12:27 Dose: 25 mg Lactulose (Lactulose 20 Gm/30 Ml Solution) 20 gm PO TID [facility] Last Admin: 08/24/24 15:35 Dose: 20 gm Levetiracetam (Levetiracetam 1,000 Mg Tablet) 1,000 mg PO BID [facility] Last Admin: 08/24/24 08:10 Dose: 1,000 mg Levothyroxine Sodium (Levothyroxine Sodium 50 Mcg Tablet) 50 mcg PO DAILY@0600 [facility] Last Admin: 08/24/24 06:26 Dose: 50 mcg Magnesium Hydroxide (Milk Of Magnesia 30 Ml Oral.Susp) 30 ml PO DAILY PRN PRN Reason: Constipation Nicotine Polacrilex (Nicotine Polacrilex 2 Mg Gum) 4 mg BUCCAL Q2H PRN PRN Reason: Nicotine Cravings Last Admin: 08/24/24 12:27 Dose: 4 mg Omeprazole (Omeprazole 40 Mg Capsule.Dr) 40 mg PO BID@0630,1630 [facility] Last Admin: 08/24/24 15:38 Dose: 40 mg Ondansetron HCl (Ondansetron Odt 8 Mg Tab.Rapdis) 8 mg TRANSLINGU Q12H PRN PRN Reason: Nausea and Vomiting Last Admin: 08/20/24 03:40 Dose: 8 mg Quetiapine Fumarate (Quetiapine Fumarate 50 Mg Tablet) 50 mg PO BEDTIME [facility] Last Admin: 08/23/24 21:13 Dose: 50 mg Senna (Sennosides 8.6 Mg Tablet) 17.2 mg PO DAILY PRN PRN Reason: Constipation Last Admin: 08/23/24 16:21 Dose: 17.2 mg Thiamine HCl (Thiamine Hcl 100 Mg Tablet) 100 mg PO DAILY DORIAN Last Admin: 08/24/24 08:10 Dose: 100 mg Trazodone HCl (Trazodone Hcl 50 Mg Tablet) 50 mg PO BEDTIME MRX1 PRN PRN Reason: Insomnia Last Admin: 08/21/24 20:55 Dose: 50 mg Triamcinolone Acetonide (Triamcinolone Acet 0.1 % Cream 15 Gm Tube) 1 appl TOPICAL BID PRN; Protocol PRN Reason: eczema Allergies Allergies Allergy/AdvReac Type Severity Reaction Status Date / Time chlorpromazine Allergy Unknown Verified 08/13/24 12:47 [From Thorazine] fluoxetine [From Prozac] Allergy Unknown Verified 08/13/24 12:47 haloperidol [From Haldol] Allergy Unknown Verified 08/13/24 12:47 Assessment & Plan Assessment & Plan (1) Depression: Status: Acute Code(s): F32.A - Depression, unspecified (2) Acute hepatic encephalopathy: Status: Acute Code(s): K76.82 - Hepatic encephalopathy (3) Opioid use disorder: Status: Acute Code(s): F11.90 - Opioid use, unspecified, uncomplicated (4) Nicotine dependence: Status: Acute Code(s): F17.200 - Nicotine dependence, unspecified, uncomplicated Plan cut suboxone from 8 TID to 6 TID due to altered level of consciousness. decrease klonopin dosing and convert to ativan; ativan 1 TID PRN for now. hepatic insufficiency. asking for seroqeul 50 QHS for sleep. will add tonight. GI recs noted - liver U/S completed. per ID - no Tx to be started in hospital for Hep C, refer to ID on discharge. F/U with gastro. 08/20: continue current tx plan. 08/21: Per nursing, crushed orange pills were found near patient's bed with rolled up paper (please see her note). T/W attempted to speak to patient regarding this, however pt declined to speak with T/W. He was informed Suboxone pills would be switched to films and would have to be monitored by staff after medication administration; Pt acknowledged T/W. Chest x-ray results showed peribronchial thickening may indicate bronchitis; please see hospitalist note. 08/22: DC ativan. pt has not been getting much and should not be prescribed this medication in any case. will also pursue continuing to cut down on suboxone. 08/23: continue tx plan 08/24: more awake, c/o malaise. incr suboxone back to 6 mg TID in case he is in withdrawal. c/o generalized pain later in the day, gabapentin restarted at 300 TID. planning to discharge tomorrow. Reason for continued inpatient stay Substantial Risk for: inability to function Time Spent With Patient Time: Total time managing care of this patient today __35__ minutes.
[2024-08-24] MEDS: Gabapentin 300 MG CAPSULE PO ×2 (16:51→20:30)
[2024-08-24 17:45] LABS: Ammonia 62 umol/L (13-55)
[2024-08-24 17:57] LABS: Alanine Aminotransferase 100 U/L (0-40); Albumin Level 2.9 g/dL (3.5-5.0); Aspartate Amino Transferase 154 U/L (5-37); Bilirubin Direct 0.7 mg/dL (0.0-0.5); Bilirubin Total 1.2 mg/dL (0.0-1.0); Total Protein 7.9 g/dL (6.5-8.0)
[2024-08-24 18:17] LABS: Alkaline Phosphatase 125 U/L (39-117)
[2024-08-24 20:00] VITALS: BP 138/82; PULSE 104; RESP 16; TEMP 37.7; O2SAT 98
[2024-08-24] MEDS: QUEtiapine Fumarate 50 MG TABLET PO (20:30)
[2024-08-24] MEDS: Melatonin 3 MG TABLET 9 MG PO (20:59)
[2024-08-25] MEDS: hydrOXYzine HCL 25 MG TABLET PO (04:45)
[2024-08-25] MEDS: Levothyroxine Sodium 50 MCG TABLET PO (05:50)
[2024-08-25] MEDS: Omeprazole 40 MG CAPSULE.DR PO (06:21)
[2024-08-25 07:00] VITALS: BMI 22.2
[2024-08-25 08:00] VITALS: BP 123/70; PULSE 96; RESP 14; TEMP 37.1; O2SAT 97
[2024-08-25] MEDS: Folic Acid 1 MG TABLET PO (08:52)
[2024-08-25] MEDS: Escitalopram Oxalate 20 MG TABLET PO (08:52)
[2024-08-25] MEDS: Thiamine HCL 100 MG TABLET PO (08:52)
[2024-08-25] MEDS: levETIRAcetam 1,000 MG TABLET 1000 MG PO (08:52)
[2024-08-25] MEDS: Gabapentin 300 MG CAPSULE PO (08:52)
[2024-08-25] MEDS: Lactulose 20 GM/30 ML SOLUTION PO (08:53)
[2024-08-25] MEDS: Cyanocobalamin (Vitamin B-12) 1,000 MCG TABLET 1000 MCG PO (08:53)
[2024-08-25] MEDS: Buprenorphine/Naloxone 2/0.5mg FILM 3 FILM SUBLINGUAL (08:53)
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
== END 2024-08-25 12:05 | disposition home or self-care (01) | DRG 754 ==
PROVIDERS: Registered Nurse; Student in an Organized Health Care Education/Training Program; Admitting Provider Psychiatry & Neurology Psychiatry; Visit Provider Psychiatry & Neurology Psychiatry
DX: F32.A Depression, unspecified (principal); K76.82 Hepatic encephalopathy; F11.20 Opioid dependence, uncomplicated; J40 Bronchitis, not specified as acute or chronic; F17.210 Nicotine dependence, cigarettes, uncomplicated; Z71.6 Tobacco abuse counseling; Z20.822 Contact with and (suspected) exposure to COVID-19; Z87.891 Personal history of nicotine dependence; Z79.890 Hormone replacement therapy; Z79.899 Other long term (current) drug therapy
CPT/HCPCS: 0241U; 36415; 71046; 80061; 80076; 81001; 82140; 82607; 82746; 83036; 84439; 84443; 85025; 87651

== ENCOUNTER 2024-08-18 14:00 | Outpatient (BNV) | payer OTHER, SELFPAY | END 2024-08-20 18:21 | PROVIDERS: Admitting Provider Psychiatry & Neurology Psychiatry; Visit Provider Radiology Diagnostic Radiology | DX: R05.9 Cough, unspecified (principal); R50.9 Fever, unspecified | CPT/HCPCS: 71046 ==

== ENCOUNTER → 2024-08-18 14:00 | Outpatient (BNV) | payer OTHER, SELFPAY | PROVIDERS: Admitting Provider Psychiatry & Neurology Psychiatry; Visit Provider Psychiatry & Neurology Psychiatry | DX: F32.2 Major depressive disorder, single episode, severe without psychotic features (principal); F11.90 Opioid use, unspecified, uncomplicated; F17.200 Nicotine dependence, unspecified, uncomplicated; K76.82 Hepatic encephalopathy | CPT/HCPCS: 90792; 99231; 99232; 99239 ==